=== PATIENT | male | born 1995 | race Caucasian/White ===

== ENCOUNTER 2017-02-22 23:48 | Emergency (ER) | payer OTHER ==
[~2017-02-22 23:48] MED LIST: Etomidate 2 MG/ML 20 ML SDV IVPUSH ONE; Rocuronium 50 MG/5 ML Vial ONE
[2017-02-22] MEDS ORDERED: Iopamidol 612 MG/ML 150 ML Bottle IVPUSH ONE (23:53)
[2017-02-22] MEDS ORDERED: Sodium Chloride 0.9% 10 ML Syringe FLUSH PRN (23:53)
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
[2017-02-23] MEDS ORDERED: ceFAZolin 1 GM in Premix Bag 1 BAG IV STA (01:11)
[2017-02-23] MEDS ORDERED: Etomidate 2 MG/ML 20 ML SDV IVPUSH STA (01:20)
[2017-02-23] MEDS ORDERED: Sodium Chloride 0.9% 250 ML ONE (01:39)
[2017-02-23] MEDS ORDERED: Sodium Chloride 0.9% 1,000 ML IV ONE ×3 (01:50→01:51)
[2017-02-23] MEDS ORDERED: Lactated Ringers 1,000 ML IV ONE (01:52)
[2017-02-23 03:15] VITALS: BP 107/78
--- NOTE | 2017-02-24 08:31 | CT ---
Head CT Technique: Multiple axial sections through the brain were obtained. Intravenous contrast was not utilized. Comparison: No previous intracranial imaging. Findings: Ventricles along with basal cisterns and sulci over the convexities are within normal limits for the patient's age. No abnormal parenchymal densities are seen. No evidence of intracranial hemorrhage. No midline shift or mass effect is seen. Small soft tissue hematoma seen within the left frontal scalp. Bone window settings were reviewed which show minimal mucosal thickening within the right maxillary sinus and ethmoid sinuses. No acute calvarial abnormality is seen. Bone window settings show slight increased density superficially within or on top of the skin around both orbits. Impression: 1. Minimal sinus findings which are felt to be incidental. 2. Small soft tissue hematoma within the left frontal scalp. 3. Slight increased density within or on top of the skin around the orbits. Please correlate as to etiology. 4. No acute intracranial abnormality is identified. Diagnostic code #3 I agree with preliminary report issued by [facility] ([facility] report finalized on 02/23/17, 2:02 AM Central Time), additional finding as noted above.
--- NOTE | 2017-02-24 08:32 | CT ---
CT cervical spine Technique: Multiple axial sections were obtained from above C1 inferiorly to the bottom of T2. Reconstructed sagittal and coronal images were reviewed. Comparison: No previous cervical spine imaging. Findings: Vertebral body heights and disc spaces are maintained. Nasogastric tube and endotracheal tube are seen. Minimal areas of mucosal thickening seen within the left mastoid sinus which is likely incidental. Middle ear cavities are clear. Posterior skull base is intact. Vertebral bodies and posterior arches are intact. No fracture is seen. No abnormal subluxation is seen on the reconstructed sagittal images. Neural foramina and central canal appear patent. Impression: 1. No acute abnormality is identified on CT study of the cervical spine. 2. Endotracheal tube and nasogastric tube are partially seen. Diagnostic code #2 I agree with preliminary report issued by [facility] ([facility] report finalized on 02/23/17, 2:04 AM Central Time)
--- NOTE | 2017-02-24 08:32 | CT ---
CT chest Technique: Multiple axial sections were obtained through the chest. Intravenous contrast was utilized. Comparison: No previous chest imaging. Findings: Endotracheal tube is seen. Tip lies above the ankit. Nasogastric tube courses through the mediastinum into the stomach. No pericardial thickening is seen. Mediastinum and hilar regions appear within normal limits. No axillary adenopathy is seen. Lungs are clear. No pulmonary contusion, pleural effusion or pneumothorax is seen. Bone window settings were reviewed which show no discrete rib fracture. Vertebral body heights and disc spaces are maintained within the thoracic spine. Lateral reconstructed images of the sternum appear unremarkable. Impression: 1. Nothing acute is identified on CT study of the chest. Diagnostic code #1 I agree with preliminary report issued by [facility] ([facility] report finalized on 02/23/17, 2:07 AM Central Time) CT abdomen and pelvis Technique: Multiple axial sections were obtained from above the dome of the diaphragm inferiorly through the pubic symphysis. Intravenous contrast was utilized. No oral contrast has been given. Delayed images were also obtained through the abdomen and pelvis. Comparison: Previous CT abdomen and pelvis exam dated 07/04/15. Findings: Large pelvic hematoma is seen with evidence of active extravasation of IV contrast compatible with acute bleeding. This hematoma extends through a widened sacroiliac joint into the anterior lower abdominal structures and extends into the perirectal soft tissues. Bone window settings show a proximal left femur fracture with displacement. Widening of the pubic symphysis is seen as well as widening and disruption of the left sacroiliac joint. Gunn catheter is seen within the ureter and bladder. Contrast noted on delayed images within the bladder. Bladder is displaced posteriorly and to the right side secondary to the large pelvic hematoma. Liver shows no focal parenchymal abnormality. Spleen appears within normal limits. Several minimal low density lesions seen within the spleen which are felt to be incidental. Adrenal glands show no nodule. Nasogastric tube is seen within the stomach. Pancreas appears within normal limits. Gallbladder shows no abnormal calcifications. Kidneys show symmetric contrast enhancement and show no abnormality. Aorta shows no aneurysmal dilatation. No retroperitoneal adenopathy is seen. Appendix is seen which is normal. No mesenteric abnormalities are appreciated. Bone window settings show no discrete fracture within the lumbar spine. Impression: 1. Large pelvic hematoma showing active bleeding. Hematoma extends into the lower anterior abdominal wall through a widened SI joint as well as causing displacement of the bladder and ureter posteriorly and to the right side. Hematoma extends into the perirectal soft tissues. 2. Widening of the pubic symphysis compatible with disruption. Widening of the left sacroiliac joint is seen compatible with so-called sprung pelvis. 3. Mildly displaced proximal left femur fracture. 4. No additional abnormality is appreciated on CT study of the abdomen and pelvis. Diagnostic code #5 I agree with preliminary report issued by [facility] ([facility] report finalized on 02/23/17, 2:12 AM Central Time)
--- NOTE | 2017-02-24 08:32 | CR ---
Left femur: Single lateral view of the mid and distal femur were obtained. Fracture is identified within the mid one third diaphysis which is mildly comminuted with posterior angulation as well as posterior displacement by a shaft width of the distal portion of the femur in relation to proximal portion. Diffuse soft tissue swelling is seen. Impression: 1. Angulated and displaced as well as mildly comminuted fracture within the mid one third diaphysis of the femur. Proximal left femur fracture is seen on CT exam. Diagnostic code #5
--- NOTE | 2017-02-24 08:32 | US ---
Limited abdominal ultrasound: Multiple real-time images were obtained of the right and left upper quadrant as well as within Kwaku's pouch Findings: Large pelvic hematoma is identified. No free fluid is seen. Impression: 1. Findings as noted above. Diagnostic code #3 I agree with preliminary report issued by [facility] ([facility] report finalized on 02/23/17, 3:18 AM Central Time)
--- NOTE | 2017-02-24 08:32 | CR ---
Left forearm: Single view of the left forearm was obtained. Comminuted fracture identified within the mid one third diaphysis of the radius and ulna. Displacement is seen by over a shaft width as well as angulation and rotation. Diffuse soft tissue swelling is identified. Impression: 1. Fractures as noted above. Soft tissue swelling. Diagnostic code #5
--- NOTE | 2017-03-25 13:12 | PCM.SN ---
- Free Text/Narrative Note: Called to Er arrive at [address] Samuel Frazier MD requested that the patient be intubated. Sedation provided per Dr Frazier. Intubation with glidescope 4 7.5 OETT visualized through vocal cords. Tube secured per respiratory. Bilateral breath sound equal. Patient vital signs stable. Sedation provided was etomidate and paralyzed with rocuronium for intubation. Patient was then placed on a propofol drip prior to going to CT. Out of [facility] at 0106.
== END 2017-02-23 02:10 ==
LOC: JD.ED 23:48
DX: S32.811A Multiple fractures of pelvis with unstable disruption of pelvic ring, initial encounter for closed fracture (principal); S72.352 Displaced comminuted fracture of shaft of left femur; S09.90XA Unspecified injury of head, initial encounter; S52.92XA Unspecified fracture of left forearm, initial encounter for closed fracture; S00.81XA Abrasion of other part of head, initial encounter; S20.312A Abrasion of left front wall of thorax, initial encounter; S30.811A Abrasion of abdominal wall, initial encounter; S50.812A Abrasion of left forearm, initial encounter; S40.012A Contusion of left shoulder, initial encounter; Z88.1 Allergy status to other antibiotic agents; F17.210 Nicotine dependence, cigarettes, uncomplicated; V19.9XXA Pedal cyclist (driver) (passenger) injured in unspecified traffic accident, initial encounter
CPT/HCPCS: 31500; 36415; 36430; 51702; 70450; 71260; 72125; 73090; 73551; 74177; 76705; 80053; 80306; 81001; 82150; 83605; 85014; 85018; 85025; 85610; 85730; 86900; 86901; 96360; 96365; 96366; 96368; 96375; 96376; 99291; 99292; G0390; G0480; J0690; J7040; J7050; J7120; P9016; Q9967; J3490

== ENCOUNTER 2019-09-10 17:00 | Emergency (ER) | payer OTHER ==
[2019-09-10 17:26] VITALS: BP 148/89; PULSE 82
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
--- NOTE | 2019-09-10 19:00 | US ---
Left lower extremity deep venous ultrasound: Duplex and color Doppler evaluation was obtained the left common femoral, proximal greater saphenous, superficial femoral, popliteal, posterior tibial and peroneal veins. Right common femoral vein was also evaluated. Comparison: No prior venous imaging is available. Findings: Normal phasic flow, augmentation and compression is seen. Impression: 1. No evidence of deep venous thrombosis within left lower extremity or within the right common femoral vein. Diagnostic code #1 Study was dictated in [place] Standard Time
--- NOTE | 2019-09-11 07:11 | US ---
Left lower extremity arterial ultrasound: Duplex and color Doppler evaluation was obtained of the left common femoral, superficial femoral, popliteal, posterior tibial, peroneal and dorsalis pedis arteries. Velocity measurements appear within normal limits. Normal arterial waveforms are noted. Measurements: Common femoral artery peak systolic velocity of 0.94 m/s Superficial femoral artery peak systolic velocity of 1.03 m/s Popliteal artery peak systolic velocity of 0.58 m/s Posterior tibial artery peak systolic velocity of 0.45 m/s Peroneal artery peak systolic velocity of 0.34 m/s Dorsalis pedis artery peak systolic velocity of 0.36 m/s Impression: 1. Nothing seen to indicate significant arterial stenosis or occlusion within the left lower extremity. Diagnostic code #1 This report was dictated in [place] Standard Time I agree with preliminary report from [facility], finalized on 09/10/19, 8:27 PM Central Time
== END 2019-09-10 19:44 | disposition home or self-care (01) ==
LOC: JD.ED 17:00
DX: L03.116 Cellulitis of left lower limb (principal); F17.210 Nicotine dependence, cigarettes, uncomplicated; Z88.1 Allergy status to other antibiotic agents
CPT/HCPCS: 36415; 80053; 85025; 93925; 93925-26; 93971-26-LT; 93971-LT; 99284-25

== ENCOUNTER → 2020-07-14 | Day surgery (SDC) | payer OTHER ==
[~2020-07-14] MED LIST changes: +Acetaminophen/HYDROcodone 325-5 MG Tab PO PRN; +Clindamycin Phosphate in D5W 900 MG in Premix Bag 1 BAG IV SCH; +Dexamethasone 4 MG/ML 5 ML MDV ONE; -Etomidate 2 MG/ML 20 ML SDV IVPUSH ONE; +HYDROmorphone 0.5 MG/0.5 ML Syringe IVPUSH PRN; +HYDROmorphone 0.5 MG/0.5 ML Syringe ONE; +Ketorolac 30 MG/ML SDV ONE; +Lactated Ringers 1,000 ML IV SCH; +Lidocaine 1% 4 ML ONE; +Lidocaine 1%/Sod Bicarbonate in NS 8.4% 1 ML Syringe IDERM PRN; +Midazolam 1 MG/ML 2 ML SDV ONE; +Ondansetron 4 MG/2 ML SDV IVPUSH PRN; +Ondansetron 4 MG/2 ML SDV ONE; +Propofol 200 MG/20 ML SDV ONE; -Rocuronium 50 MG/5 ML Vial ONE; +Sodium Chloride 0.9% 10 ML Syringe FLUSH PRN; +diphenhydrAMINE 50 MG/ML SDV IVPUSH PRN; +fentaNYL 100 MCG/2 ML SDV IVPUSH PRN; +fentaNYL 250 MCG/5 ML SDV ONE
--- NOTE | 2020-07-14 12:32 | PCM.PREANE ---
Preanesthetic Assessment - Procedure Proposed Procedure: left ulnar hardware removal - Anesthesia/Transfusion/Family Hx Anesthesia History: No Prior Anesthesia Family History of Anesthesia Reaction: No Transfusion History: Prior Transfusion Without Reaction Intubation History: Unknown - Review of Systems General: No Symptoms Pulmonary: No Symptoms, Other (smotker one pack per day ) Cardiovascular: No Symptoms Gastrointestinal: No Symptoms Neurological: No Symptoms Other: Reports: None - Physical Assessment NPO Status Date: 07/13/20 NPO Status Time: 22:00 Vital Signs: Last Vital Signs Temp 36.4 C 07/14/20 10:55 Pulse 73 07/14/20 10:55 Resp 16 07/14/20 10:55 BP 133/76 07/14/20 10:55 Pulse Ox 99 07/14/20 10:55 Height: 1.85 m Weight: 81.193 kg ASA Class: 2 Mental Status: Alert & Oriented x3 Airway Class: Mallampati = 1 Dentition: Reports: Normal Dentition Thyro-Mental Finger Breadths: 3 Mouth Opening Finger Breadths: 5 ROM/Head Extension: Full Lungs: Clear to Auscultation, Normal Respiratory Effort Cardiovascular: Regular Rate, Regular Rhythm - Lab Values: Laboratory Last Values MRSA (PCR) Negative 07/08/20 09:08 - Allergies Allergies/Adverse Reactions: Allergies Allergy/AdvReac Type Severity Reaction Status Date / Time amoxicillin Allergy Hives Verified 07/14/20 11:24 cephalexin monohydrate Allergy Hives Verified 07/14/20 11:24 [From Keflex] - Blood Blood Available: No - Anesthesia Plan Pre-Op Medication Ordered: None - Acknowledgements Anesthesia Type Planned: MAC Pt an Appropriate Candidate for the Planned Anesthesia: Yes Alternatives and Risks of Anesthesia Discussed w Pt/Guardian: Yes Pt/Guardian Understands and Agrees with Anesthesia Plan: Yes PreAnesthesia Questionnaire HEENT History: Reports: Other (See Below) Other HEENT History: numerous ear surgeries, congential problems and now is [facility] Other Gastrointestinal History: Hernia - Past Surgical History Other HEENT Surgeries/Procedures: Tubes to the ears bilaterally Musculoskeletal Surgical History: Reports: Other (See Below) Other Musculoskeletal Surgeries/Procedures:: left shoulder surgeries, left hip surgery, rods in left thigh, plates in pelvis, plates in left forearm - HOME MEDS Home Medications: Home Meds Acetaminophen/HYDROcodone [[place] 325-5 MG] 1 - 2 tab PO Q6H PRN #20 tablet 07/14/20 [Rx] Melatonin 10 mg PO BEDTIME 07/14/20 [History] - CURRENT (IN HOUSE) MEDS Current Meds: Current Medications Lactated Ringer's (Ringers, Lactated) 1,000 mls @ 125 mls/hr IV ASDIRECTED VITA Last Admin: 07/14/20 11:00 Dose: 125 mls/hr Documented by: Clindamycin Phosphate 900 mg/ (Premix) 50 mls @ 100 mls/hr IV ONETIME VITA Stop: 07/14/20 18:00 Lidocaine/Sodium Bicarbonate (Buffered Lidocaine 1% In Ns 8.4%) 0.25 ml IDERM ONETIME PRN PRN Reason: Prior to IV Start Last Admin: 07/14/20 11:00 Dose: 0.25 ml Documented by: Sodium Chloride (Saline Flush) 10 ml FLUSH ASDIRECTED PRN PRN Reason: Keep Vein Open Discontinued Medications Bupivacaine HCl (Sensorcaine-Mpf 0.25%) Confirm Administered Dose 20 ml .ROUTE .STK-MED ONE Stop: 07/14/20 12:25 Fentanyl (Sublimaze) Confirm Administered Dose 250 mcg .ROUTE .STK-MED ONE Stop: 07/14/20 12:17 Lidocaine HCl (Xylocaine-Mpf 1%) Confirm Administered Dose 4 mls @ as directed .ROUTE .STK-MED ONE Stop: 07/14/20 12:19 Midazolam HCl (Versed 1 Mg/Ml) Confirm Administered Dose 2 mg .ROUTE .STK-MED ONE Stop: 07/14/20 12:17 Ondansetron HCl (Zofran) Confirm Administered Dose 4 mg .ROUTE .STK-MED ONE Stop: 07/14/20 12:21 Propofol (Diprivan 20 Ml) Confirm Administered Dose 400 mg .ROUTE .STK-MED ONE Stop: 07/14/20 12:17
[2020-07-14] MEDS: Bupivacaine 0.25% 10 ML SDV ONE ×2 (14:23→14:48)
--- NOTE | 2020-07-14 15:12 | PCM.POSTAN ---
POST ANESTHESIA ASSESSMENT - MENTAL STATUS Mental Status: Alert - VITAL SIGNS Vital Signs: Last Vital Signs 1504 143/101 100 RA 86 25 97.2 Temp 36.4 C 07/14/20 10:55 Pulse 73 07/14/20 10:55 Resp 16 07/14/20 10:55 BP 133/76 07/14/20 10:55 Pulse Ox 99 07/14/20 10:55 - RESPIRATORY Respiratory Status: Respiratory Rate WNL, Airway Patent, O2 Saturation Stable, Supplemental Oxygen - CARDIOVASCULAR CV Status: Pulse Rate WNL, Blood Pressure Stable - GASTROINTESTINAL GI Status: No Symptoms - PAIN Pain Score: 10 (being managed by PACU) - POST OP HYDRATION Hydration Status: Adequate & Stable
--- NOTE | 2020-07-14 15:28 | PCM48HPAN ---
Post Anesthesia Note - EVALUATION WITHIN 48HRS OF ANESTHETIC Vital Signs in Normal Range: Yes Patient Participated in Evaluation: Yes Respiratory Function Stable: Yes Airway Patent: Yes Cardiovascular Function Stable: Yes Hydration Status Stable: Yes Pain Control Satisfactory: Yes Nausea and Vomiting Control Satisfactory: Yes Mental Status Recovered: Yes Vital Signs: Last Vital Signs Temp 97.8 F 07/14/20 15:15 Pulse 68 07/14/20 15:15 Resp 11 L 07/14/20 15:15 BP 128/94 H 07/14/20 15:15 Pulse Ox 97 07/14/20 15:15
--- NOTE | 2020-07-14 15:32 | CR ---
Left forearm: Single view of the mid left forearm was obtained utilizing C-arm device Comparison: Prior left forearm study of 02/23/17. Findings: There has been plate and screws removed within the bone. Fluoroscopy time is given as 2.3 seconds. Previous fractures show evidence of healing. Impression: 1. Procedural study as noted above. Diagnostic code #2
[2020-07-14 16:06] VITALS: BP 129/86; PULSE 68
--- NOTE | 2020-08-03 11:34 | PCM.OPNOTE ---
- General Post-Op/Procedure Note Date of Surgery/Procedure: 07/14/20 Operative Procedure(s): left ulna hardware removal Pre Op Diagnosis: left painful ulnar hardware Post-Op Diagnosis: Same Anesthesia Technique: General LMA, Local Primary Surgeon: Yves Painter Anesthesia Provider: Rula Barrett Blade Bender Furnace Tender: Deja Rich EBL in mLs: 5 Complications: None Condition: Good
--- NOTE | 2020-08-03 11:54 | OR ---
DATE OF OPERATION: 07/14/2020 SURGEON: Yves Painter MD OPERATION PERFORMED: Left ulnar hardware removal. PREOPERATIVE DIAGNOSIS: Left painful ulnar hardware. POSTOPERATIVE DIAGNOSIS: Left painful ulnar hardware. ANESTHESIA: General LMA with local. ANESTHESIA PROVIDER: Rula Barrett. CHILD WELFARE DIRECTOR: Deja Rich PA-C ESTIMATED BLOOD LOSS: Less than 5 mL. COMPLICATIONS: None. CONDITION: Stable. DESCRIPTION OF PROCEDURE: The patient was identified in the preoperative holding area. Proper site was marked and identified by the surgeon. The patient was taken back to the operative theater, where after adequate anesthesia, the patient's left upper extremity had a nonsterile tourniquet applied and then sterilely prepped and draped in the usual sterile fashion. OR time-out was performed and left upper extremity was exsanguinated. Tourniquet was insufflated to 200 mmHg. The previous ulnar incision was utilized. This was taken down between the ECU and FCU down to the ulnar hardware. C-arm fluoroscopy was used to make sure we were both proximally and distally into the plate. Once we were there, I removed any excess bone with a curette and rongeur out of the screw holes. The screwdriver was then used to remove all screws and the plate was then elevated off with the elevator and a periosteal stripper. Once this was completed, a rongeur and a rasp were used to smooth out any bony prominences. Adequate saline was irrigated through all screw holes and the wound. C-arm fluoroscopy took an image making sure all hardware was removed and it was. 2-0 Vicryl was used subcutaneously, and shelia were used for closure of the skin. The patient was placed in a sterile soft dressing and was sent to the PACU in stable condition. MMODAL /[id number]
== END | disposition home or self-care (01) ==
LOC: JD.SDS 10:52
PROVIDERS: ATTEND Orthopaedic Surgery
DX: T84.84XA Pain due to internal orthopedic prosthetic devices, implants and grafts, initial encounter (principal); F17.210 Nicotine dependence, cigarettes, uncomplicated; Z98.890 Other specified postprocedural states; Z88.1 Allergy status to other antibiotic agents; Z88.8 Allergy status to other drugs, medicaments and biological substances
CPT/HCPCS: 20680; 76000; 87641; A9270; J1100; J1170; J1885; J2001; J2250; J2405; J2704; J3010; J3490; J7120; 01830

== ENCOUNTER 2020-08-05 05:29 | Day surgery (SDC) | payer OTHER ==
[2020-08-05] MEDS ORDERED: Sodium Chloride 0.9% 1,000 ML IV SCH (06:15)
[2020-08-05] MEDS ORDERED: FLU VACC QS2020-21(6MOS UP)/PF 60 MCG/0.5 ML SYRINGE IM ONE (06:15)
--- NOTE | 2020-08-05 06:15 | EDM.PDOC ---
<Jalen Dobson - Last Filed: 08/05/20 06:35> ED HPI GENERAL MEDICAL PROBLEM - General Chief Complaint: Gastrointestinal Problem Stated Complaint: POSSIBLE HEMROID Time Seen by Provider: 08/05/20 05:50 Source of Information: Reports: Patient, Family () History Limitations: Reports: No Limitations - History of Present Illness INITIAL COMMENTS - FREE TEXT/NARRATIVE: Mr. Mayorga is a very pleasant 25-year-old man who now presents the ED with a complaint of anal pain since this past 08/02/2020. He has not had any anal bleeding or purulent drainage. No recent fever. No prior similar symptoms. He states that he has applied Preparation H since last night, without any improvement in his symptoms. The patient last ate around 19:00 last night. Here in the ED, the patient is found to be hemodynamically stable, afebrile, saturating 97% on room air. Prior to Saturday, the patient denies having a recent fever, chills, sore throat, ear pain, nasal or sinus congestion, cough, dyspnea, chest pain, palpitations, nausea, vomiting, constipation, diarrhea, abdominal pain, urinary symptoms, recent weight gain or weight loss, recent bloody bowel movements or black bowel movements, recent joint aches, headaches, or rashes. The patient does not have a PCP. He has not received an influenza vaccine this season, but agreed to receive one here in the ED. Rectal Pain Score (Numeric/FACES): 8 - Related Data Allergies Allergy/AdvReac Type Severity Reaction Status Date / Time amoxicillin Allergy Hives Verified 08/05/20 05:42 cephalexin monohydrate Allergy Hives Verified 08/05/20 05:42 [From Keflex] Home Meds: Home Meds Melatonin 10 mg PO BEDTIME 07/14/20 [History] Past Medical History HEENT History: Reports: Hard of Hearing - Past Surgical History HEENT Surgical History: Reports: Adenoidectomy ( or '), Myringotomy w Tube(s) (bilateral x 5, as a child), Tonsillectomy ('97 or '98), Other (See Below) (Left tympanoplasty 2008) GI Surgical History: Reports: Hernia, Inguinal (right, 2007) Musculoskeletal Surgical History: Reports: ORIF (left forearm, 2017), Shoulder Surgery (right, fracture + tendon repair 2005), Other (See Below) (Open book pelvic fracture repair + left femur rodding 2017) Social & Family History - Tobacco Use Tobacco Use Status *Q: Current Every Day Tobacco User Years of Tobacco use: 13 Packs/Tins Daily: 1 - Caffeine Use Caffeine Use: Reports: Coffee - Alcohol Use Alcohol Use History: Yes Alcohol Use Frequency: Socially - Recreational Drug Use Recreational Drug Use: No - Living Situation & Occupation Living situation: Reports: , with Spouse Occupation: Employed (Construction) ED ROS GENERAL - Review of Systems Review Of Systems: Comprehensive ROS is negative, except as noted in HPI. ED EXAM, GI/ABD - Physical Exam Exam: See Below Exam Limited By: No Limitations General Appearance: Alert, WD/WN, No Apparent Distress Rectal (Males) Exam: Other (There are no visible external hemorrhoids. No visible anal swelling or erythema. The patient is quite tender to palpation of the left side of his anus, and a subtle vertical ridge, approximately 2 cm in length, is palpable within the anus that the patient confirms is tender.) Course - Re-Assessments/Exams Free Text/Narrative Re-Assessment/Exam: 08/05/20 06:13 As above, the patient has had anal pain since 08/02/2020. On examination, there is no external hemorrhoid visible, however, the patient is very tender to palpation of the left side of his anus, and a subtle vertical ridge can be palpated which the patient confirms is tender. His exam is concerning for a left intersphincteric perirectal abscess. Case discussed with Dr. Storey at 06:07. She recommended that we get a CT of the pelvis with IV contrast to evaluate the extent of the abscess, and, in case the patient needs to go to the operating room for drainage, a CBC and CMP. I will also order a swab for the SARS-CoV-2 virus. In the meantime, the patient will be given IV Dilaudid, IV Zofran, and IV fluid. 08/05/20 07:[address] Patel, and care of the patient turned over to him at this time, for change of shift. Departure - Departure Disposition: DC/Tfer to [facility] Clinical Impression: Janessa-rectal abscess - Discharge Information Referrals: PCP,None [Primary Care Provider] - Forms: ED Department Discharge Sepsis Event Note (ED) - Evaluation Sepsis Screening Result: No Definite Risk <Jordan Patel - Last Filed: 08/05/20 09:45> Course - Vital Signs Last Recorded V/S: Last Vital Signs Temp 36.3 C 08/05/20 07:40 Pulse 56 L 08/05/20 09:00 Resp 16 08/05/20 09:00 BP 125/75 08/05/20 09:00 Pulse Ox 95 08/05/20 09:00 - Orders/Labs/Meds Orders: Active Orders 24 hr Category Date Time Status Influenza Vaccine Charge [RC] .DISCHARGE Care 08/05/20 06:13 Active Pelvis w Cont [CT] Stat Exams 08/05/20 06:12 Taken Levofloxacin/Dextrose 5%-Water [Levaquin in D5W 750 MG/ Med 08/05/20 09:39 Ordered 150 ML] 750 mg Premix Bag 1 bag IV ONETIME Sodium Chloride 0.9% [Normal Saline] 1,000 ml Med 08/05/20 06:15 Active IV ASDIRECTED metroNIDAZOLE/Normal Saline [Flagyl 500 MG in NS 100 ML Med 08/05/20 09:39 Ordered ] 500 mg Premix Bag 1 bag IV ONETIME Medication Orders Sodium Chloride (Normal Saline) 1,000 mls @ 150 mls/hr IV ASDIRECTED [facility] Last Admin: 08/05/20 06:25 Dose: 150 mls/hr Documented by: GILDA Labs: Laboratory Tests 08/05/20 08/05/20 08/05/20 Range/Units 06:25 06:25 06:35 WBC 7.66 (4.23-9.07) K/mm3 RBC 4.78 (4.63-6.08) M/mm3 Hgb 14.9 (13.7-17.5) gm/dl Hct 44.7 (40.1-51.0) % MCV 93.5 H (79.0-92.2) fl MCH 31.2 (25.7-32.2) pg MCHC 33.3 (32.2-35.5) g/dl RDW Std Deviation 42.8 (35.1-43.9) fL Plt Count 203 (163-337) K/mm3 MPV 10.5 (9.4-12.3) fl Neutrophils % (Manual) 78 H (40-60) % Band Neutrophils % 0 (0-10) % Lymphocytes % (Manual) 20 (20-40) % Atypical Lymphs % 0 % Immat Monocytes % (Man) 0 Monocytes % (Manual) 1 L (2-10) % Eosinophils % (Manual) 1 (0.8-7.0) % Basophils % (Manual) 0 L (0.2-1.2) Metamyelocytes % 0 Myelocytes % 0 Promyelocytes % 0 Blast Cells % 0 Plasma Cell % (Manual) 0 Nucleated RBCs 0.0 % Platelet Estimate Adequate RBC Morph Comment Normal Sodium 141 (136-145) mEq/L Potassium 4.2 (3.5-5.1) mEq/L Chloride 105 (98-107) mEq/L Carbon Dioxide 28 (21-32) mEq/L Anion Gap 12.2 (5-15) BUN 23 H (7-18) mg/dL Creatinine 1.1 (0.7-1.3) mg/dL Est Cr Clr Drug Dosing 114.00 mL/min Estimated GFR (MDRD) > 60 (>60) mL/min BUN/Creatinine Ratio 20.9 H (14-18) Glucose 99 (74-106) mg/dL Calcium 9.0 (8.5-10.1) mg/dL Total Bilirubin 0.6 (0.2-1.0) mg/dL AST 20 (15-37) U/L ALT 28 (16-63) U/L Alkaline Phosphatase 58 (46-116) U/L Total Protein 7.2 (6.4-8.2) g/dl Albumin 3.9 (3.4-5.0) g/dl Globulin 3.3 gm/dL Albumin/Globulin Ratio 1.2 (1-2) SARS-CoV-2 RNA (WILLIAM) Negative (NEGATIVE) Meds: Medications Generic Name Dose Route Start Last Admin Trade Name Freq PRN Reason Stop Dose Admin Sodium Chloride 1,000 mls @ 150 mls/hr 08/05/20 06:15 08/05/20 06:25 Normal Saline IV 150 mls/hr ASDIRECTED VITA Administration Discontinued Medications Generic Name Dose Route Start Last Admin Trade Name Freq PRN Reason Stop Dose Admin Hydromorphone HCl 1 mg 08/05/20 06:18 08/05/20 06:29 Dilaudid IVPUSH 08/05/20 06:19 1 mg ONETIME ONE Administration Hydromorphone HCl 0.5 mg 08/05/20 08:01 08/05/20 08:06 Dilaudid IVPUSH 08/05/20 08:02 0.5 mg ONETIME ONE Administration Hydromorphone HCl 0.5 mg 08/05/20 08:56 08/05/20 09:02 Dilaudid IVPUSH 08/05/20 08:57 0.5 mg ONETIME ONE Administration Influenza Virus Vaccine 60 mcg 08/05/20 06:15 08/05/20 06:29 Fluzone Quad [id number] Syringe IM 08/05/20 06:16 60 mcg .ONCE ONE Administration Ondansetron HCl 4 mg 08/05/20 06:18 08/05/20 06:29 Zofran IVPUSH 08/05/20 06:19 4 mg ONETIME ONE Administration - Re-Assessments/Exams Free Text/Narrative Re-Assessment/Exam: 08/05/20 09:10 CT does show a developing perirectal abscess see the CT report. Dr. Storey is here at this time and will assess the patient 08/05/20 09:42 I have reviewed the situation with Dr. Storey who will take the patient to surgery midday today. The patient is penicillin allergic we will give him a dose of Levaquin 750 mg IV 1 time and Flagyl 500 mg IV 1 time. Departure - Departure Time of Disposition: 09:43 Sepsis Event Note (ED) - Focused Exam Vital Signs: Vital Signs Temp Pulse Resp BP Pulse Ox 08/05/20 09:00 56 L 16 125/75 95 08/05/20 07:40 36.3 C 56 L 16 121/72 97 08/05/20 05:39 36.4 C 70 18 138/77 97 - My Orders Last 24 Hours: My Active Orders 08/05/20 09:39 Levofloxacin/Dextrose 5%-Water [Levaquin in D5W 750 MG/150 ML] 750 mg Premix Bag 1 bag IV ONETIME metroNIDAZOLE/Normal Saline [Flagyl 500 MG in NS 100 ML] 500 mg Premix Bag 1 bag IV ONETIME - Assessment/Plan Last 24 Hours: My Active Orders 08/05/20 09:39 Levofloxacin/Dextrose 5%-Water [Levaquin in D5W 750 MG/150 ML] 750 mg Premix Bag 1 bag IV ONETIME metroNIDAZOLE/Normal Saline [Flagyl 500 MG in NS 100 ML] 500 mg Premix Bag 1 bag IV ONETIME
[2020-08-05] MEDS ORDERED: Ondansetron 4 MG/2 ML SDV IVPUSH ONE (06:18)
[2020-08-05] MEDS ORDERED: HYDROmorphone 1 MG/ML Syringe IVPUSH ONE (06:18)
[2020-08-05] MEDS ORDERED: HYDROmorphone 0.5 MG/0.5 ML Syringe IVPUSH ONE ×3 (08:01→10:53)
[2020-08-05] MEDS ORDERED: Levofloxacin/Dextrose 5%-Water 750 MG in Premix Bag 1 BAG IV ONE (09:39)
[2020-08-05] MEDS ORDERED: metroNIDAZOLE/Normal Saline 500 MG in Premix Bag 1 BAG IV ONE (09:39)
--- NOTE | 2020-08-05 10:31 | CT ---
CT pelvis Technique: Multiple axial sections through the pelvis were obtained. Reconstructed coronal and sagittal images were obtained. Intravenous contrast was utilized. Findings: Artifact is noted from left hip hardware and hardware within the pubic symphysis. Appendix is felt to be visualized. Distal aorta and iliac vessels shows no aneurysm. No pelvic mass, inflammatory change or free fluid is seen. Small low density area is seen within the left perirectal region which is felt compatible with a small perirectal abscess measuring 2.0 x 1.0 x 1.7 cm. No additional perirectal abnormality is appreciated. No additional superficial soft tissue abnormality is appreciated. Impression: 1. Artifact from orthopedic hardware. 2. Findings which are felt compatible with perirectal abscess on the left side with measurements as noted above. 3. No other acute abnormality is appreciated. Diagnostic code #3 MTDD
[2020-08-05] MEDS ORDERED: Lidocaine 1% with EPINEPHrine 1:100,000 20 ML MDV ONE (10:44)
--- NOTE | 2020-08-05 11:13 | PCM.PREANE ---
Preanesthetic Assessment - Procedure Proposed Procedure: I & D rectal abscess - Anesthesia/Transfusion/Family Hx Anesthesia History: No Prior Anesthesia Family History of Anesthesia Reaction: No Transfusion History: Prior Transfusion Without Reaction Intubation History: Unknown - Review of Systems General: No Symptoms Pulmonary: No Symptoms Cardiovascular: No Symptoms Gastrointestinal: No Symptoms Neurological: No Symptoms Other: Reports: None - Physical Assessment NPO Status Date: 08/05/20 NPO Status Time: 04:15 Vital Signs: Last Vital Signs Temp 36.2 C 08/05/20 11:06 Pulse 50 L 08/05/20 11:06 Resp 16 08/05/20 11:06 BP 120/76 08/05/20 11:06 Pulse Ox 97 08/05/20 11:06 Height: 1.85 m Weight: 86.455 kg ASA Class: 3 Mental Status: Alert & Oriented x3 Airway Class: Mallampati = 1 Dentition: Reports: Normal Dentition Thyro-Mental Finger Breadths: 3 Mouth Opening Finger Breadths: 4 ROM/Head Extension: Full Lungs: Clear to Auscultation, Normal Respiratory Effort Cardiovascular: Regular Rate, Regular Rhythm - Lab Values: Laboratory Last Values WBC 7.66 K/mm3 (4.23-9.07) 08/05/20 06:25 RBC 4.78 M/mm3 (4.63-6.08) 08/05/20 06:25 Hgb 14.9 gm/dl (13.7-17.5) 08/05/20 06:25 Hct 44.7 % (40.1-51.0) 08/05/20 06:25 MCV 93.5 fl (79.0-92.2) H 08/05/20 06:25 MCH 31.2 pg (25.7-32.2) 08/05/20 06:25 MCHC 33.3 g/dl (32.2-35.5) 08/05/20 06:25 RDW Std Deviation 42.8 fL (35.1-43.9) 08/05/20 06:25 Plt Count 203 K/mm3 (163-337) 08/05/20 06:25 MPV 10.5 fl (9.4-12.3) 08/05/20 06:25 Neutrophils % (Manual) 78 % (40-60) H 08/05/20 06:25 Band Neutrophils % 0 % (0-10) 08/05/20 06:25 Lymphocytes % (Manual) 20 % (20-40) 08/05/20 06:25 Atypical Lymphs % 0 % 08/05/20 06:25 Immat Monocytes % (Man) 0 08/05/20 06:25 Monocytes % (Manual) 1 % (2-10) L 08/05/20 06:25 Eosinophils % (Manual) 1 % (0.8-7.0) 08/05/20 06:25 Basophils % (Manual) 0 (0.2-1.2) L 08/05/20 06:25 Metamyelocytes % 0 08/05/20 06:25 Myelocytes % 0 08/05/20 06:25 Promyelocytes % 0 08/05/20 06:25 Blast Cells % 0 08/05/20 06:25 Plasma Cell % (Manual) 0 08/05/20 06:25 Nucleated RBCs 0.0 % 08/05/20 06:25 Platelet Estimate Adequate 08/05/20 06:25 RBC Morph Comment Normal 08/05/20 06:25 Sodium 141 mEq/L (136-145) 08/05/20 06:25 Potassium 4.2 mEq/L (3.5-5.1) 08/05/20 06:25 Chloride 105 mEq/L (98-107) 08/05/20 06:25 Carbon Dioxide 28 mEq/L (21-32) 08/05/20 06:25 Anion Gap 12.2 (5-15) 08/05/20 06:25 BUN 23 mg/dL (7-18) H 08/05/20 06:25 Creatinine 1.1 mg/dL (0.7-1.3) 08/05/20 06:25 Est Cr Clr Drug Dosing 114.00 mL/min 08/05/20 06:25 Estimated GFR (MDRD) > 60 mL/min (>60) 08/05/20 06:25 BUN/Creatinine Ratio 20.9 (14-18) H 08/05/20 06:25 Glucose 99 mg/dL (74-106) 08/05/20 06:25 Calcium 9.0 mg/dL (8.5-10.1) 08/05/20 06:25 Total Bilirubin 0.6 mg/dL (0.2-1.0) 08/05/20 06:25 AST 20 U/L (15-37) 08/05/20 06:25 ALT 28 U/L (16-63) 08/05/20 06:25 Alkaline Phosphatase 58 U/L (46-116) 08/05/20 06:25 Total Protein 7.2 g/dl (6.4-8.2) 08/05/20 06:25 Albumin 3.9 g/dl (3.4-5.0) 08/05/20 06:25 Globulin 3.3 gm/dL 08/05/20 06:25 Albumin/Globulin Ratio 1.2 (1-2) 08/05/20 06:25 SARS-CoV-2 RNA (WILLIAM) Negative (NEGATIVE) 08/05/20 06:35 - Allergies Allergies/Adverse Reactions: Allergies Allergy/AdvReac Type Severity Reaction Status Date / Time amoxicillin Allergy Hives Verified 08/05/20 05:42 cephalexin monohydrate Allergy Hives Verified 08/05/20 05:42 [From Keflex] - Blood Blood Available: No - Anesthesia Plan Pre-Op Medication Ordered: None - Acknowledgements Anesthesia Type Planned: General Anesthesia Pt an Appropriate Candidate for the Planned Anesthesia: Yes Alternatives and Risks of Anesthesia Discussed w Pt/Guardian: Yes Pt/Guardian Understands and Agrees with Anesthesia Plan: Yes PreAnesthesia Questionnaire HEENT History: Reports: Hard of Hearing Other HEENT History: numerous ear surgeries, congential problems and now is [facility] Other Gastrointestinal History: Hernia - Past Surgical History HEENT Surgical History: Reports: Adenoidectomy (' or '98), Myringotomy w Tube(s) (bilateral x 5, as a child), Tonsillectomy ('97 or '98), Other (See Below) (Left tympanoplasty 2008) GI Surgical History: Reports: Hernia, Inguinal (right, 2007) Musculoskeletal Surgical History: Reports: ORIF (left forearm, 2017), Shoulder Surgery (right, fracture + tendon repair 2005), Other (See Below) (Open book pelvic fracture repair + left femur rodding 2016) - SUBSTANCE USE Tobacco Use Status *Q: Current Every Day Tobacco User Tobacco Use Within Last Twelve Months: Cigarettes Recreational Drug Use History: No - HOME MEDS Home Medications: Home Meds Melatonin 10 mg PO BEDTIME 07/14/20 [History] - CURRENT (IN HOUSE) MEDS Current Meds: Current Medications Sodium Chloride (Normal Saline) 1,000 mls @ 150 mls/hr IV ASDIRECTED VITA Last Admin: 08/05/20 06:25 Dose: 150 mls/hr Documented by: Levofloxacin/Dextrose 750 mg/ (Premix) 150 mls @ 100 mls/hr IV ONETIME ONE Stop: 08/05/20 11:08 Discontinued Medications Hydromorphone HCl (Dilaudid) 1 mg IVPUSH ONETIME ONE Stop: 08/05/20 06:19 Last Admin: 08/05/20 06:29 Dose: 1 mg Documented by: Hydromorphone HCl (Dilaudid) 0.5 mg IVPUSH ONETIME ONE Stop: 08/05/20 08:02 Last Admin: 08/05/20 08:06 Dose: 0.5 mg Documented by: Hydromorphone HCl (Dilaudid) 0.5 mg IVPUSH ONETIME ONE Stop: 08/05/20 08:57 Last Admin: 08/05/20 09:02 Dose: 0.5 mg Documented by: Hydromorphone HCl (Dilaudid) 0.5 mg IVPUSH ONETIME ONE Stop: 08/05/20 10:54 Last Admin: 08/05/20 11:01 Dose: 0.5 mg Documented by: Metronidazole 500 mg/ Premix 100 mls @ 100 mls/hr IV ONETIME ONE Stop: 08/05/20 10:38 Last Admin: 08/05/20 10:09 Dose: 100 mls/hr Documented by: Influenza Virus Vaccine (Fluzone Quad Syringe) 60 mcg IM .ONCE ONE Stop: 08/05/20 06:16 Last Admin: 08/05/20 06:29 Dose: 60 mcg Documented by: Lidocaine/Epinephrine (Xylocaine 1% With Epinephrine 1:100,000) Confirm Administered Dose 20 ml .ROUTE .STK-MED ONE Stop: 08/05/20 10:45 Ondansetron HCl (Zofran) 4 mg IVPUSH ONETIME ONE Stop: 08/05/20 06:19 Last Admin: 08/05/20 06:29 Dose: 4 mg Documented by:
[2020-08-05] MEDS ORDERED: Ondansetron 4 MG/2 ML SDV IVPUSH PRN ×2 (11:15→14:57)
[2020-08-05] MEDS ORDERED: fentaNYL 100 MCG/2 ML SDV IVPUSH PRN ×2 (11:15→14:57)
[2020-08-05] MEDS ORDERED: diphenhydrAMINE 50 MG/ML SDV IVPUSH PRN (11:15)
[2020-08-05] MEDS ORDERED: Midazolam 1 MG/ML 2 ML SDV ONE (11:29)
[2020-08-05] MEDS ORDERED: fentaNYL 250 MCG/5 ML SDV ONE (11:29)
[2020-08-05] MEDS ORDERED: Propofol 200 MG/20 ML SDV ONE (11:29)
[2020-08-05] MEDS ORDERED: Lidocaine 1% 4 ML ONE ×2 (11:30)
[2020-08-05] MEDS ORDERED: Dexamethasone 4 MG/ML 5 ML MDV ONE (11:31)
[2020-08-05] MEDS ORDERED: Ondansetron 4 MG/2 ML SDV ONE (11:31)
--- NOTE | 2020-08-05 13:53 | PCM.HP.2 ---
H&P History of Present Illness - General Date of Service: 08/05/20 Admit Problem/Dx: Admission Diagnosis/Problem Admission Diagnosis/Problem Rectal abscess Source of Information: Patient, Provider History Limitations: Reports: No Limitations - History of Present Illness Initial Comments - Free Text/Narative: The patient is a 25 y/o male who presents with anal pain for 3 days. He reports this has steadily been getting worse. His last bowel movement was yesterday, and not painful. He denies any hematochezia or purulent stools. He denies any prior symptoms that have been similar. He was evaluated in the ED which showed normal WBC, but CT findings of a perirectal abscess. Rectal Pain Score (Numeric/FACES): 5 - Related Data Allergies/Adverse Reactions: Allergies Allergy/AdvReac Type Severity Reaction Status Date / Time amoxicillin Allergy Hives Verified 08/05/20 05:42 cephalexin monohydrate Allergy Hives Verified 08/05/20 05:42 [From Keflex] Home Medications: Home Meds Melatonin 10 mg PO BEDTIME 07/14/20 [History] Past Medical History HEENT History: Reports: Hard of Hearing Other HEENT History: numerous ear surgeries, congential problems and now is [facility] Other Gastrointestinal History: Hernia - Past Surgical History HEENT Surgical History: Reports: Adenoidectomy ( or '), Myringotomy w Tube(s) (bilateral x 5, as a child), Tonsillectomy ('97 or '98), Other (See Below) (Left tympanoplasty 2008) GI Surgical History: Reports: Hernia, Inguinal (right, 2007) Musculoskeletal Surgical History: Reports: ORIF (left forearm, 2016), Shoulder Surgery (right, fracture + tendon repair 2005), Other (See Below) (Open book pelvic fracture repair + left femur rodding 2016) Social & Family History - Family History Cardiac: Denies: Hypertension, MD Neurological: Denies: CVA Endocrine/Metabolic: Denies: Diabetes, type II - Tobacco Use Tobacco Use Status *Q: Current Every Day Tobacco User Years of Tobacco use: 13 Packs/Tins Daily: 1 Used Tobacco, but Quit: No - Caffeine Use Caffeine Use: Reports: Coffee - Recreational Drug Use Recreational Drug Use: No - Living Situation & Occupation Living situation: Reports: , with Spouse Occupation: Employed (Construction) H&P Review of Systems - Review of Systems: Review Of Systems: See Below General: Reports: No Symptoms HEENT: Reports: No Symptoms Pulmonary: Reports: No Symptoms Cardiovascular: Reports: No Symptoms Gastrointestinal: Reports: Other (anal pain) Genitourinary: Reports: No Symptoms Musculoskeletal: Reports: Other (multiple orthopedic surgeries) Skin: Reports: No Symptoms Neurological: Reports: No Symptoms Exam - Exam Exam: See Below - Vital Signs Vital Signs: Last Vital Signs Temp 36.2 C 08/05/20 11:06 Pulse 50 L 08/05/20 11:06 Resp 16 08/05/20 11:06 BP 120/76 08/05/20 11:06 Pulse Ox 97 08/05/20 11:06 Weight: 86.455 kg - Exam Quality Assessment: No: Supplemental Oxygen General: Alert, Oriented HEENT: Conjunctiva Clear, EOMI Neck: Supple Lungs: Clear to Auscultation, Normal Respiratory Effort Cardiovascular: Regular Rate, Regular Rhythm GI/Abdominal Exam: Soft, Non-Tender, No Distention Rectal (Males) Exam: Perirectal Abscess (very painful exam) Extremities: Normal Inspection, No Pedal Edema Skin: Warm, Dry, Intact Neurological: Cranial Nerves Intact Neuro Extensive - Mental Status: Oriented x3, Normal Mood/Affect - Patient Data Lab Results Last 24 hrs: Laboratory Results - last 24 hr 08/05/20 08/05/20 08/05/20 Range/Units 06:25 06:25 06:35 WBC 7.66 (4.23-9.07) K/mm3 RBC 4.78 (4.63-6.08) M/mm3 Hgb 14.9 (13.7-17.5) gm/dl Hct 44.7 (40.1-51.0) % MCV 93.5 H (79.0-92.2) fl MCH 31.2 (25.7-32.2) pg MCHC 33.3 (32.2-35.5) g/dl RDW Std Deviation 42.8 (35.1-43.9) fL Plt Count 203 (163-337) K/mm3 MPV 10.5 (9.4-12.3) fl Neutrophils % (Manual) 78 H (40-60) % Band Neutrophils % 0 (0-10) % Lymphocytes % (Manual) 20 (20-40) % Atypical Lymphs % 0 % Immat Monocytes % (Man) 0 Monocytes % (Manual) 1 L (2-10) % Eosinophils % (Manual) 1 (0.8-7.0) % Basophils % (Manual) 0 L (0.2-1.2) Metamyelocytes % 0 Myelocytes % 0 Promyelocytes % 0 Blast Cells % 0 Plasma Cell % (Manual) 0 Nucleated RBCs 0.0 % Platelet Estimate Adequate RBC Morph Comment Normal Sodium 141 (136-145) mEq/L Potassium 4.2 (3.5-5.1) mEq/L Chloride 105 (98-107) mEq/L Carbon Dioxide 28 (21-32) mEq/L Anion Gap 12.2 (5-15) BUN 23 H (7-18) mg/dL Creatinine 1.1 (0.7-1.3) mg/dL Est Cr Clr Drug Dosing 114.00 mL/min Estimated GFR (MDRD) > 60 (>60) mL/min BUN/Creatinine Ratio 20.9 H (14-18) Glucose 99 (74-106) mg/dL Calcium 9.0 (8.5-10.1) mg/dL Total Bilirubin 0.6 (0.2-1.0) mg/dL AST 20 (15-37) U/L ALT 28 (16-63) U/L Alkaline Phosphatase 58 (46-116) U/L Total Protein 7.2 (6.4-8.2) g/dl Albumin 3.9 (3.4-5.0) g/dl Globulin 3.3 gm/dL Albumin/Globulin Ratio 1.2 (1-2) SARS-CoV-2 RNA (WILLIAM) Negative (NEGATIVE) Result Diagrams: 08/05/20 06:25 08/05/20 06:25 Sepsis Event Note - Evaluation Sepsis Screening Result: No Definite Risk - Focused Exam Vital Signs: Vital Signs Temp Pulse Resp BP Pulse Ox 08/05/20 11:06 36.2 C 50 L 16 120/76 97 08/05/20 09:00 56 L 16 125/75 95 08/05/20 07:40 36.3 C 56 L 16 121/72 97 08/05/20 05:39 36.4 C 70 18 138/77 97 *Q Meaningful Use (ADM) - VTE Risk Assess *Q Each Risk Factor Represents 1 Point: Minor Surgery Planned Total Score 1 Point Risk Factors: 1 - Problem List (1) Janessa-rectal abscess SNOMED Code(s): 64201369 ICD Code: K61.1 - RECTAL ABSCESS Status: Acute Current Visit: Yes Problem List Initiated/Reviewed/Updated: Yes Orders Last 24hrs: Active Orders 24 hr Category Date Time Status Admission Status [Patient Status] [ADT] Routine ADT 08/05/20 09:56 Active Communication Order [RC] ROUTINE Care 08/05/20 11:14 Active Cooling Warming Measures [RC] ASDIRECTED Care 08/05/20 11:14 Active Influenza Vaccine Charge [RC] .DISCHARGE Care 08/05/20 06:13 Active Notify Provider [RC] ASDIRECTED Care 08/05/20 11:15 Active Oxygen Therapy [RC] ASDIRECTED Care 08/05/20 11:14 Active Pulse Oximetry [RC] ASDIRECTED Care 08/05/20 11:14 Active Vital Signs [RC] Q15M Care 08/05/20 11:14 Active Ondansetron [Zofran] Med 08/05/20 11:15 Active 4 mg IVPUSH ONETIME PRN Sodium Chloride 0.9% [Normal Saline] 1,000 ml Med 08/05/20 06:15 Active IV ASDIRECTED diphenhydrAMINE [Benadryl] Med 08/05/20 11:15 Active 25 mg IVPUSH Q6H PRN fentaNYL [Sublimaze] Med 08/05/20 11:15 Active 50 mcg IVPUSH Q5M PRN Schedule Procedure [COMM] Stat Oth 08/05/20 09:56 Ordered Medication Orders Diphenhydramine HCl (Benadryl) 25 mg IVPUSH Q6H PRN PRN Reason: pruritis Stop: 08/05/20 23:00 Fentanyl (Sublimaze) 50 mcg IVPUSH Q5M PRN PRN Reason: Pain Stop: 08/05/20 23:00 Last Admin: 08/05/20 12:02 Dose: 50 mcg Documented by: AMANDA Sodium Chloride (Normal Saline) 1,000 mls @ 150 mls/hr IV ASDIRECTED VITA Last Admin: 08/05/20 06:25 Dose: 150 mls/hr Documented by: GILDA Ondansetron HCl (Zofran) 4 mg IVPUSH ONETIME PRN PRN Reason: Nausea/Vomiting Stop: 08/05/20 23:00 Assessment/Plan Comment:: 25 y/o male with perirectal abscess. - plan for intraoperative drainage. Discussed risks of infection, bleeding, and temporary continence difficulties. His written consent was obtained. - levofloxacin and metronidazole IV x1 preoperatively - NPO - IV pain control as needed Linsey Deleon MD General surgery - Mortality Measure Prognosis:: Good
[2020-08-05] MEDS ORDERED: Bupivacaine 0.25% 10 ML SDV ONE (14:11)
[2020-08-05] MEDS ORDERED: Ketorolac 30 MG/ML SDV ONE (14:19)
--- NOTE | 2020-08-05 14:50 | PCM.PRNOTE ---
- Free Text/Narrative Note: Operative report Date of Surgery: 08/05/20 Operative Procedure(s): incision and drainage of perirectal abscess with internal sphincterotomy Pre Op Diagnosis: Perirectal abscess Post-Op Diagnosis: perirectal abscess Anesthesia Technique: General LMA Primary Surgeon: Linsey Deleon Anesthesia Provider: Rula Barrett CRNA Secondary Anesthesia: Ana Wall CRNA Fluid Replacement, Intraop: 600 Output, Urine Amount: 0 EBL in mLs: 50 Findings: left sided intrasphincteric perirectal abscess Pathology: none Indication for the procedure: The patient is a 25-year-old gentleman who presented to the emergency department with perianal pain that was steadily worsening over the last 3 days. He was found have a perirectal abscess on CT imaging. He was consented for exam under anesthesia with incision and drainage of the abscess. We discussed risks of bleeding, infection, and temporary sphincter dysfunction. His written consent was obtained. Description of the procedure: The patient was brought back to the operating room and placed in supine position on the operating table. He had administered antibiotics of metronidazole and levofloxacin in the emergency department. He had successful induction of general anesthesia and an LMA was placed. He was then positioned in lithotomy issue. He was prepped and draped in standard surgical fashion and a timeout was performed. We inserted an anoscope into the anal canal to evaluate the area. The patient did have a firm bulge on the left lateral wall of the anal canal. This was consistent with exam findings. He operatively as well as his CT findings. An 18-gauge needle was then inserted into this area and the purulent fluid in the cavity was isolated. The abscess was directly beneath the internal sphincter on the left lateral side. Attempt to access this more superiorly than the sphincter was unsuccessful. The internal sphincter and overlying hemorrhoid tissue were then opened using a scalpel and the purulent drainage was expressed. The area was then probed repeatedly using the 18-gauge needle to identify any additional areas of abscess. There was no additional abscess cavity noted. The edges of the enterotomy and hemorrhoid tissue were marsupialized using 3-0 Vicryl running suture on each side of the incision. The Bovie was used for hemostasis. The was then removed. A perianal block formed using local anesthetic. The anal tissue was gently probed and no tory bleeding was noted. Dibucaine was then placed on a Gelfoam. . It was rolled and placed into the anal canal. The procedure was then terminated. Complications: none apparent Condition: Good Linsey Deleon MD General surgery
--- NOTE | 2020-08-05 14:50 | PCM.OPNOTE ---
- General Post-Op/Procedure Note Date of Surgery/Procedure: 08/05/20 Operative Procedure(s): incision and drainage of perirectal abscess with internal sphincterotomy Findings: left sided intrasphincteric perirectal abscess Pre Op Diagnosis: Perirectal abscess Post-Op Diagnosis: perirectal abscess Anesthesia Technique: General LMA Primary Surgeon: Linsey Deleon Anesthesia Provider: Rula Barrett Apparatus Cleaner: Ana Wall Pathology: none Fluid Replacement, Intraop: 600 Output, Urine Amount: 0 EBL in mLs: 50 Complications: none apparent Condition: Good
[2020-08-05] MEDS ORDERED: HYDROmorphone 0.5 MG/0.5 ML Syringe IVPUSH PRN (14:57)
[2020-08-05] MEDS ORDERED: Dexmedetomidine 200 MCG/2 ML SDV ONE (15:25)
--- NOTE | 2020-08-05 16:10 | PCM48HPAN ---
Post Anesthesia Note - EVALUATION WITHIN 48HRS OF ANESTHETIC Vital Signs in Normal Range: Yes Patient Participated in Evaluation: Yes Respiratory Function Stable: Yes Airway Patent: Yes Cardiovascular Function Stable: Yes Hydration Status Stable: Yes Pain Control Satisfactory: Yes Nausea and Vomiting Control Satisfactory: Yes Mental Status Recovered: Yes Vital Signs: Last Vital Signs Temp 37.1 C 08/05/20 15:45 Pulse 74 08/05/20 15:45 Resp 15 08/05/20 15:45 BP 128/69 08/05/20 15:45 Pulse Ox 93 08/05/20 16:10
[2020-08-05 16:13] VITALS: BP 128/80; PULSE 71
== END 2020-08-05 16:21 | disposition home or self-care (01) ==
LOC: JD.ED 05:29 → JD.SDS 09:56
PROVIDERS: ATTEND Surgery
DX: K61.1 Rectal abscess (principal); F17.210 Nicotine dependence, cigarettes, uncomplicated; Z88.1 Allergy status to other antibiotic agents; Z88.8 Allergy status to other drugs, medicaments and biological substances; Z98.890 Other specified postprocedural states; Z01.812 Encounter for preprocedural laboratory examination; Z20.822 Contact with and (suspected) exposure to COVID-19
CPT/HCPCS: 00902; 36415; 72193; 72193-26; 80053; 85007; 85027; 90686; 96365; 96367; 96375; 96376; 99283; 99284-25; A9270-GY; G0008; J1100; J1170; J1885; J1956; J2001; J2250; J2405; J2704; J3010; J3490; J7030; U0002

== ENCOUNTER 2021-08-18 03:47 | Emergency (ER) | payer OTHER ==
[2021-08-18 03:54] VITALS: BP 146/99; PULSE 98
[2021-08-18] MEDS ORDERED: methylPREDNISolone Sodium Succinate 125 MG/2 ML SDV IVPUSH ONE (04:00)
[2021-08-18] MEDS ORDERED: Sodium Chloride 0.9% 10 ML Syringe FLUSH PRN (04:00)
[2021-08-18] MEDS ORDERED: Famotidine 20 MG/2 ML SDV IVPUSH ONE (04:01)
== END 2021-08-18 06:14 | disposition home or self-care (01) ==
LOC: JD.ED 03:47
DX: T78.1XXA Other adverse food reactions, not elsewhere classified, initial encounter (principal)
CPT/HCPCS: 96374; 96375; 99284; J2930; J3490